=== PATIENT | female | born 1980 | race Caucasian/White ===

== ENCOUNTER 2017-11-06 19:30 | Emergency (ER) | payer SELFPAY ==
[~2017-11-06] VITALS: Ht 167.6 cm; Wt 75.3 kg
[~2017-11-06 19:30] MED LIST: ALPR-475 PO; None per pt; OXYC-302 PO
[2017-11-06 20:24] LABS: BASOPHILS # (AUTO) 0.03 x10^3/uL (0-0.1); BASOPHILS % (AUTO) 1 % (0-1); EOSINOPHILS % (AUTO) 0 % (1-7); LYMPHOCYTES # (AUTO) 1.74 x10^3/uL (1-3.4); LYMPHOCYTES % (AUTO) 34 % (22-44); MD NO; MEAN CORPUSCULAR HGB CONC 33.6 g/dL (32.4-35.8); MEAN CORPUSCULAR VOLUME 95.3 fL (80-100); MEAN PLATELET VOLUME 9.1 fL (7.4-10.4); MONOCYTES % (AUTO) 6 % (2-9); NEUTROPHILS # (AUTO) 3.03 x10^3/uL (1.8-6.8); NEUTROPHILS % (AUTO) 60 % (42-75); PLATELET COUNT 228 x10^3/uL (130-400); RED CELL DISTRIBUTION WIDTH 13.6 % (9.6-15.2)
[2017-11-06 20:33] LABS: ALBUMIN 3.9 g/dL (3.4-5.0); ANION GAP 5 mmol/L (5-15); CALCIUM 8.8 mg/dL (8.5-10.1); CHLORIDE 109 mmol/L (98-107)
[2017-11-06 20:38] LABS: CREATININE 0.91 mg/dL (0.55-1.02); TROPONIN I < 0.015 ng/mL (0.000-0.045)
[2017-11-06 21:01] VITALS: BP 131/85
== END 2017-11-06 21:34 | disposition home or self-care (01) ==
LOC: ED 21:24
DX: R07.89 Other chest pain (principal); F17.200 Nicotine dependence, unspecified, uncomplicated
CPT/HCPCS: 36415; 71045; 80048; 82040; 84484; 85025; 93005; 99285

== ENCOUNTER 2018-10-19 23:20 | Emergency (ER) | payer MEDICAID ==
[~2018-10-19] VITALS: Ht 170.2 cm; Wt 75.0 kg
[2018-10-19 23:21] VITALS: BP 130/76
--- NOTE | 2018-10-19 23:30 | NUR ---
PT. REFUSED W/C TO ROOM FROM TRIAGE.
--- NOTE | 2018-10-19 23:46 | NUR ---
PT AMBULATED FROM TRIAGE TO ROOM WITH STEADY GAIT.
--- NOTE | 2018-10-19 23:58 | NUR ---
PT MEDICATED PER JUL. PT AMBULATORY TO XRAY.
[2018-10-20] MEDS ORDERED: ALBUTEROL SULFATE 2.5 MG/3 ML NPPB ONE
[2018-10-20 00:18] LABS: BASOPHILS # (AUTO) 0.15 x10^3/uL (0-0.1); BASOPHILS % (AUTO) 2 % (0-1); EOSINOPHILS # (AUTO) 0.03 x10^3/uL (0-0.4); EOSINOPHILS % (AUTO) 0 % (1-7); LYMPHOCYTES # (AUTO) 2.55 x10^3/uL (1-3.4); LYMPHOCYTES % (AUTO) 26 % (22-44); MD NO; MEAN CORPUSCULAR HEMOGLOBIN 32.9 pg (27.0-34.8); MEAN CORPUSCULAR HGB CONC 33.6 g/dL (32.4-35.8); MEAN PLATELET VOLUME 9.1 fL (7.4-10.4); MONOCYTES # (AUTO) 0.32 x10^3/uL (0.2-0.8); MONOCYTES % (AUTO) 3 % (2-9); NEUTROPHILS # (AUTO) 6.92 x10^3/uL (1.8-6.8); NEUTROPHILS % (AUTO) 69 % (42-75); PLATELET COUNT 223 x10^3/uL (130-400); RED BLOOD COUNT 4.78 x10^6/uL (3.82-5.3); RED CELL DISTRIBUTION WIDTH 13.6 % (9.6-15.2)
[2018-10-20 00:29] LABS: ALANINE AMINOTRANSFERASE 31 U/L (12-78); ANION GAP 10 mmol/L (5-15); CHLORIDE 111 mmol/L (98-107); CREATININE 0.92 mg/dL (0.55-1.02)
[2018-10-20 00:34] LABS: ALKALINE PHOSPHATASE 100 U/L (45-117); TOTAL PROTEIN 7.6 g/dL (6.4-8.2); TROPONIN I < 0.015 ng/mL (0.000-0.045)
--- NOTE | 2018-10-20 01:40 | NUR ---
PT D/C WITH D/C SUMMARY AND SCRIPTS. ALL QUESTIONS ANSWERED. PT PROVIDED WORK NOTE PER REQUEST. PT AMBULATES TO REGISTRATION DESK FOR D/C HOME WITH FAMILY.
== END 2018-10-20 01:56 | disposition home or self-care (01) ==
LOC: ED 10-20 00:06
DX: J44.1 Chronic obstructive pulmonary disease with (acute) exacerbation (principal); R05 Cough; Z77.22 Contact with and (suspected) exposure to environmental tobacco smoke (acute) (chronic)
CPT/HCPCS: 36415; 71046; 80053; 84484; 84703; 85025; 85379; 93005; 94640; 99284; J7512; J7613

== ENCOUNTER 2019-05-16 12:26 | Emergency (ER) | payer MEDICAID ==
[~2019-05-16] VITALS: Ht 170.2 cm; Wt 74.3 kg
[~2019-05-16 12:26] MED LIST changes: -ALPR-475 PO; +ALPR0.5T7 PO
--- NOTE | 2019-05-16 14:03 | NUR ---
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
[2019-05-16] MEDS ORDERED: KETOROLAC 30 MG/1 ML ONE (14:14)
[2019-05-16 14:24] LABS: HCG UR SG 1.006 (1.003-1.030); MICROSCOPIC AUTO
[2019-05-16] MEDS ORDERED: KETOROLAC 30 MG/1 ML IM ONE (14:30)
[2019-05-16 14:31] LABS: CULTURE INDICATED? YES
--- NOTE | 2019-05-16 14:33 | NUR ---
DR CRAWFORD AT BEDSIDE. TEST RESULTS AND POC DISCUSSED, QUESTIONS ANSWERED. PT MED NOTED FOR PAIN
[2019-05-16] MEDS ORDERED: FLUCONAZOLE 100 MG TABLET PO ONE (15:00)
[2019-05-16] MEDS ORDERED: FLUCONAZOLE 100 MG TABLET ONE (15:09)
[2019-05-16 15:14] VITALS: BP 150/84
--- NOTE | 2019-05-16 15:17 | NUR ---
Patient/Caregiver given discharge instructions and they have confirmed that they understand the instructions. Patient ambulatory with steady gait.
== END 2019-05-16 15:18 | disposition home or self-care (01) ==
LOC: ED 14:33
DX: N30.00 Acute cystitis without hematuria (principal); N12 Tubulo-interstitial nephritis, not specified as acute or chronic; J44.9 Chronic obstructive pulmonary disease, unspecified
CPT/HCPCS: 81001; 81025; 87077; 87086; 87147; 87186; 96372; 99283; J1885

== ENCOUNTER 2019-05-31 16:49 | Emergency (ER) | payer MEDICAID ==
[~2019-05-31] VITALS: Ht 170.2 cm; Wt 74.3 kg
--- NOTE | 2019-05-31 17:45 | NUR ---
PT AMBULATED TO ROOM FROM LOBBY WITH A STEADY GAIT. UA CUP GIVEN AND PT IN RESTROOM AT THIS TIME.
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
--- NOTE | 2019-05-31 18:20 | NUR ---
BLADDER SCAN 154ML. PT GOING TO ATTEMPT TO COLLECT URINE AT THIS TIME.
--- NOTE | 2019-05-31 19:08 | NUR ---
URINE COLLECTED AND SENT TO LAB.
[2019-05-31 19:17] LABS: CULTURE INDICATED? YES; MICROSCOPIC INDICATED
--- NOTE | 2019-05-31 19:21 | NUR ---
ALL TESTS RESULTS. PT IS UP FOR RECHECK AT THIS TIME.
[2019-05-31 19:23] VITALS: BP 141/86
--- NOTE | 2019-05-31 20:34 | NUR ---
Patient given discharge instructions and they have confirmed that they understand the instructions. Patient ambulatory with steady gait.
--- NOTE | 2019-05-31 20:34 | NUR ---
Jim amaro in [facility] - 05/31/19 at 2034 by TILA D
== END 2019-05-31 20:36 | disposition home or self-care (01) ==
LOC: ED 20:00
DX: N30.00 Acute cystitis without hematuria (principal); M54.5 Low back pain; I10 Essential (primary) hypertension; J44.9 Chronic obstructive pulmonary disease, unspecified; F17.200 Nicotine dependence, unspecified, uncomplicated
CPT/HCPCS: 76770; 81001; 87086; 99284

== ENCOUNTER 2020-01-06 12:12 | Emergency (ER) | payer MEDICAID ==
[~2020-01-06] VITALS: Ht 167.6 cm; Wt 72.0 kg
[2020-01-06 12:21] VITALS: BP 145/82
[2020-01-06] MEDS ORDERED: KETOROLAC 60 MG/2 ML ONE (12:52)
[2020-01-06] MEDS ORDERED: HYDROcodone/APAP 5/325 TABLET ONE (12:53)
--- NOTE | 2020-01-06 12:54 | NUR ---
PT IN RAD.
[2020-01-06] MEDS ORDERED: KETOROLAC 30 MG/1 ML IM ONE (13:00)
[2020-01-06] MEDS ORDERED: HYDROcodone/APAP 5/325 TABLET PO ONE (13:00)
--- NOTE | 2020-01-06 13:18 | NUR ---
THIS IS A 39 YO F W/ C/O LT SIDE PAIN 10/10 AFTER FALL THIS MORNING. PT RESTING [place] W/ CALL LIGHT IN REACH AND SIDE RAILS UPX2. MEDICATED PER EMAR. RESP EVEN AND UNLABORED, NADN. AWAITING RESULTS.
== END 2020-01-06 14:04 | disposition home or self-care (01) ==
LOC: ED 13:19
DX: S20.212A Contusion of left front wall of thorax, initial encounter (principal); W01.0XXA Fall on same level from slipping, tripping and stumbling without subsequent striking against object, initial encounter; Y93.89 Activity, other specified; Y92.009 Unspecified place in unspecified non-institutional (private) residence as the place of occurrence of the external cause; Y99.8 Other external cause status
CPT/HCPCS: 71101; 96372; 99283; J1885

== ENCOUNTER 2020-02-06 16:59 | Emergency (ER) | payer MEDICAID ==
[~2020-02-06] VITALS: Ht 167.6 cm; Wt 76.0 kg
[2020-02-06 17:25] VITALS: BP 122/74
--- NOTE | 2020-02-06 19:30 | NUR ---
DC HOME WITH INSTRUCT AND RX, CANE GIVEN RETURNS DEMO. PT IN NAD, WILL RETURN TO ER IF WORSE OR CONCERNS.
== END 2020-02-06 19:38 ==
LOC: ED 19:32
DX: M76.9 Unspecified enthesopathy, lower limb, excluding foot (principal); M79.662 Pain in left lower leg; I10 Essential (primary) hypertension; J44.9 Chronic obstructive pulmonary disease, unspecified; F17.200 Nicotine dependence, unspecified, uncomplicated
CPT/HCPCS: 99284

== ENCOUNTER 2020-02-08 01:40 | Emergency (ER) | payer MEDICAID ==
[~2020-02-08] VITALS: Ht 167.6 cm; Wt 80.0 kg
[2020-02-08] MEDS ORDERED: METOCLOPRAMIDE 5 MG/ML, 2ML ONE (01:52)
[2020-02-08] MEDS ORDERED: SODIUM CHLORIDE 0.9% 1,000ML IVBOLUS ONE (02:00)
[2020-02-08] MEDS ORDERED: SODIUM CHLORIDE FLUSH 10ML SYR IVF ONE (02:00)
[2020-02-08] MEDS ORDERED: METOCLOPRAMIDE 5 MG/ML, 2ML IVPush ONE (02:00)
[2020-02-08 02:17] LABS: BASOPHILS % (AUTO) 1 % (0-1); EOSINOPHILS % (AUTO) 0 % (1-7); LYMPHOCYTES % (AUTO) 22 % (22-44); MEAN CORPUSCULAR HEMOGLOBIN 29.4 pg (27.0-34.8); MEAN CORPUSCULAR HGB CONC 33.3 g/dL (32.4-35.8); MEAN PLATELET VOLUME 8.5 fL (7.4-10.4); MONOCYTES % (AUTO) 4 % (2-9); NEUTROPHILS % (AUTO) 73 % (42-75); PLATELET COUNT 325 x10^3/uL (130-400); RED CELL DISTRIBUTION WIDTH 14.7 % (9.6-15.2)
[2020-02-08 02:28] LABS: ALANINE AMINOTRANSFERASE 25 U/L (12-78); ALBUMIN 3.8 g/dL (3.4-5.0); ANION GAP 14 mmol/L (5-15); CALCIUM 8.4 mg/dL (8.5-10.1); CHLORIDE 105 mmol/L (98-107); CREATININE 0.83 mg/dL (0.55-1.02); MD NO
[2020-02-08 02:33] LABS: ALKALINE PHOSPHATASE 84 U/L (45-117); BILIRUBIN,TOTAL 0.7 mg/dL (0.2-1.0); TOTAL PROTEIN 7.4 g/dL (6.4-8.2)
[2020-02-08] MEDS ORDERED: HALOPERIDOL 5 MG/ML ONE (02:56)
[2020-02-08] MEDS ORDERED: HALOPERIDOL 5 MG/ML IV ONE (03:00)
[2020-02-08] MEDS ORDERED: HALOPERIDOL 5 MG/ML IM PRN (03:00)
--- NOTE | 2020-02-08 03:02 | NUR ---
PT MEDICATED WITH HALDOL 5MG, IM NOT IV. INFORMED ERP OK WITH ROUTE CHANGE. VSS.
[2020-02-08] MEDS ORDERED: DIPHENHYDRAMINE 50 MG/ML, 1ML ONE (03:53)
[2020-02-08] MEDS ORDERED: DIPHENHYDRAMINE 50 MG/ML, 1ML IVPush ONE (04:00)
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
[2020-02-08 05:43] VITALS: BP 136/68
== END 2020-02-08 05:45 | disposition home or self-care (01) ==
LOC: ED 02:47
DX: R11.2 Nausea with vomiting, unspecified (principal); J44.9 Chronic obstructive pulmonary disease, unspecified; I10 Essential (primary) hypertension
CPT/HCPCS: 36415; 80053; 83690; 84703; 85025; 96361; 96372; 96374; 99284; J1630; J2765; J7030